=== PATIENT | male | born 1945 | race Caucasian/White ===

== ENCOUNTER 2019-01-26 07:40 | Day surgery (SDC) | payer MEDICARE ==
[~2019-01-26] VITALS: Ht 177.8 cm; Wt 75.7 kg
[2019-01-26] VITALS (8 sets, daily range): BP systolic 140–178; BP diastolic 76–89
[2019-01-26] MEDS ORDERED: diphenhydrAMINE 25mg capsule PO ONE (08:00)
[2019-01-26] MEDS ORDERED: normal saline 1000ml 1,000 ML IV SCH (08:00)
[2019-01-26] MEDS ORDERED: CALC600T12 PO (08:44)
[2019-01-26] MEDS ORDERED: METO100T7 PO (08:44)
[2019-01-26] MEDS ORDERED: SIMV20TA5 PO (08:44)
[2019-01-26] MEDS ORDERED: FAMO40TA7 PO (08:44)
[2019-01-26] MEDS ORDERED: METH500T4 PO (08:44)
[2019-01-26] MEDS ORDERED: IRBE150T51 PO (08:44)
[2019-01-26] MEDS ORDERED: OMEG1CAP2 PO (08:44)
[2019-01-26] MEDS ORDERED: CHOL10002 PO (08:44)
[2019-01-26] MEDS ORDERED: midazolam 2 mg/2 ml injection ONE (08:49)
[2019-01-26] MEDS ORDERED: LIDOcaine 1% (10mg/ml)w/preservative injection 20ml MDV ONE (08:49)
[2019-01-26] MEDS ORDERED: iohexol 350MG/ML 100ml bottle IV ONE (08:49)
[2019-01-26] MEDS ORDERED: fentaNYL/PF 50MCG/1 ML 2ML syringe ONE (08:49)
[2019-01-26] MEDS ORDERED: iohexol 350 MG/ML 50ML vial IV ONE (08:49)
--- NOTE | 2019-01-26 09:30 | NUR ---
MD NOTIFIED THAT LABS ON PATIENT WERE DRAWN, NOT RUN. MD DID NOT ORDER NEW LABS TO BE DRAWN AT THIS TIME. PT IN RIGGING UP MAN WHEN THIS WAS REPORTED TO .
[2019-01-26] MEDS ORDERED: HYDROcodone/acetaminophen 5mg/325mg tablet PO PRN (10:25)
[2019-01-26] MEDS ORDERED: HYDROcodone/acetaminophen 10/325mg tab PO PRN (10:25)
== END 2019-01-26 13:08 | disposition home or self-care (01) ==
LOC: SSTAY O 07:40
PROVIDERS: ATTEND Internal Medicine Cardiovascular Disease
DX: I25.110 Atherosclerotic heart disease of native coronary artery with unstable angina pectoris (principal); I10 Essential (primary) hypertension; E78.5 Hyperlipidemia, unspecified; Z87.891 Personal history of nicotine dependence; Z86.010 Personal history of colon polyps; Z87.442 Personal history of urinary calculi; Z98.890 Other specified postprocedural states; Z82.49 Family history of ischemic heart disease and other diseases of the circulatory system; Z72.89 Other problems related to lifestyle; Z88.8 Allergy status to other drugs, medicaments and biological substances; Z86.69 Personal history of other diseases of the nervous system and sense organs
CPT/HCPCS: 93005; 93458; 99152; 99153; A6257; C1760; C1769; C1894; J1644; J2001; J2250; J3010; J7030; Q0163; Q9967; A4620